=== PATIENT | male | born 1980 | race Caucasian/White ===

== ENCOUNTER 2016-08-01 21:46 | Emergency (ER) | payer OTHER ==
[~2016-08-01] VITALS: Ht 190.5 cm; Wt 124.7 kg
[~2016-08-01 21:46] MED LIST: GOOD NEIGHBOR L10 MG PO; LEVOTHYROXINE0.2 MG PO; PROTONIX 40MG T40 MG PO; TRAMADOL50 MG PO
[2016-08-01] MEDS ORDERED: LEVOTHYROXINE200 MC1 PO (22:40)
[2016-08-01] MEDS ORDERED: PANTOPRAZOLE SO40 M1 PO (22:40)
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
--- NOTE | 2016-08-02 00:50 | CT SCAN REPORT ---
EXAMINATION: CT HEAD AND FACE. CLINICAL INFORMATION: Frontal headache. COMPARISON: No relevant prior imaging available. TECHNIQUE: Outbound Sales Executive images were obtained. CT acquisition of the head and face was performed without intravenous administration of contrast. Data was reformatted into multiplanar images at the acquisition workstation. DLP: 1079.62 mGy-cm. FINDINGS: There is no acute intracranial hemorrhage or abnormal extra-axial collection. No intracranial mass effect midline shift. Lateral and third ventricles are normal. No hydrocephalus. Bingham-white matter differentiation is preserved and there is no evidence of acute territorial infarct. The calvarium and skull base are intact. Mastoid air cells and middle ear cavities are well aerated. The temporomandibular joints are symmetric. There are chronic changes of an old healed fracture of the outer table of the right frontal bone with intrusion of bone fragments into the right frontal sinus cavity. This finding is best illustrated on axial image 161 of 215 series 3. There is minimal mucosal thickening within the right frontal recess. The left frontal sinus is well aerated. There is mild mucosal thickening within the alveolar recesses of both maxillary sinuses and along the undersurfaces of the orbital floors. The primary maxillary sinus ostia are patent and uncinate processes are intact. There is no ostiomeatal unit dysfunction. Ethmoid air cells are well aerated and the sphenoid sinus is well aerated. The sphenoid sinus ostia are patent. The nasal septum deviates the right and there is a rightward projecting nasal septal spur that contacts and distorts the medial surface of right inferior nasal turbinate. IMPRESSION: There are chronic changes of an old healed fracture involving the outer table of the right frontal bone with intrusion of bone fragments into the frontal sinus cavity. Minimal paranasal sinus disease within the right frontal sinus and both of the maxillary sinuses as described above. The major paranasal sinus drainage pathways are widely patent. The nasal septum deviates the right and there is a rightward projecting nasal septal spur that contacts and distorts the medial surface of the right inferior nasal turbinate.
[2016-08-02 01:35] VITALS: BP 130/78
== END 2016-08-02 01:43 ==
LOC: ERH 21:46
DX: G44.1 Vascular headache, not elsewhere classified (principal)
CPT/HCPCS: 96372; J2550